=== PATIENT | female | born 1995 | race Caucasian/White ===

== ENCOUNTER 2019-02-26 13:15 | Emergency (ER) | payer OTHER ==
[~2019-02-26] VITALS: Ht 149.9 cm; Wt 43.5 kg
[2019-02-26 13:43] LABS: URINE BILIRUBIN NEGATIVE (Negative); URINE BLOOD 2+ (Negative); URINE CLARITY CLOUDY; URINE COLOR YELLOW; URINE GLUCOSE-RANDOM* NEGATIVE (Negative); URINE KETONES NEGATIVE (Negative); URINE PROTEIN (DIPSTICK) 2+ (Negative); URINE SPECIFIC GRAVITY 1.015 (1.005-1.035); URINE UROBILINOGEN 0.2 E.U./dl (0.2-1.0)
[2019-02-26 13:44] LABS: URINE LEUKOCYTES-REFLEX 2+ (Negative); URINE NITRITE-REFLEX POSITIVE (Negative)
[2019-02-26 13:54] LABS: CASTS None Seen /LPF (None Seen); CRYSTALS None Seen /LPF (None Seen); SQUAMOUS 4-10 Moderate /LPF (0-3)
[2019-02-26 13:55] LABS: BACTERIA-REFLEX >30 Many /HPF (None Seen); URINE RBC 3-10 Few /HPF (0-2); URINE WBC-REFLEX >25 Many /HPF (0-5)
[2019-02-26] MEDS ORDERED: SUMATRIPTAN SU100 MG PO (14:01)
[2019-02-26] MEDS ORDERED: LAMICTAL XR200 MG PO (14:02)
[2019-02-26] MEDS ORDERED: ADDERALL XR 2020 MG PO (14:02)
[2019-02-26] MEDS ORDERED: LEVETIRACETAM500 M1 PO (14:02)
[2019-02-26] MEDS ORDERED: MULTIVITAMINS PO (14:03)
[2019-02-26] MEDS ORDERED: NORTRIPTYLINE H25 M3 PO (14:03)
[2019-02-26 14:11] LABS: ABSOLUTE NEUTROPHILS 6.8 thou/uL (1.4-8.2); BASOPHILS 0.7 % (0.0-2.0); HEMATOCRIT 42.2 % (37.0-47.0); HEMOGLOBIN 13.9 gm/dL (12.0-15.0); LYMPHOCYTES 17.5 % (24.0-44.0); MCH 26.1 pg (26.0-34.0); MCHC 33.1 g/dL (28.0-37.0); MONOCYTES 8.1 % (1.0-8.0); PLATELET COUNT 326 thou/uL (150-400); POLYS 72.7 % (36.0-66.0); RBC 5.34 mil/uL (4.20-5.00); RDW 13.9 % (10.5-14.5); WBC 9.3 thou/uL (4.0-11.0)
[2019-02-26 14:19] LABS: CALCIUM 9.7 mg/dL (8.5-10.1); CREATININE 0.8 mg/dL (0.6-1.0); POTASSIUM 3.5 mmol/L (3.5-5.1)
[2019-02-26 14:25] LABS: ALBUMIN 4.1 g/dL (3.4-5.0); TOTAL BILIRUBIN 0.4 mg/dL (<0.1-1.0); TOTAL PROTEIN 8.1 g/dL (6.4-8.2)
[2019-02-26] MEDS ORDERED: PHENERGAN 25 MG25 M1 PO (14:34)
[2019-02-26] MEDS ORDERED: KEFLEX500 M1 PO (14:34)
[2019-02-26 15:06] VITALS: BP 114/79
== END 2019-02-26 15:07 | disposition home or self-care (01) ==
LOC: ER 13:15
PROVIDERS: Physician Assistant
DX: N39.0 Urinary tract infection, site not specified (principal); G43.909 Migraine, unspecified, not intractable, without status migrainosus